=== PATIENT | male | born 1970 | race Two or more races ===

== ENCOUNTER 2020-06-20 08:42 | Outpatient (CLI) | payer OTHER | END 2020-06-20 08:59 | disposition home or self-care (01) | LOC: SONOGRAMA 08:42 → MAMO-SONO 10:15 | PROVIDERS: ATTEND Surgery | DX: R10.84 Generalized abdominal pain (principal); R19.4 Change in bowel habit; Z80.0 Family history of malignant neoplasm of digestive organs ==

== ENCOUNTER 2020-06-27 07:02 | Day surgery (SDC) | payer OTHER | END 2020-06-27 11:00 | disposition home or self-care (01) | LOC: AMB-ENDOS 07:02 | PROVIDERS: ATTEND Surgery | DX: K62.89 Other specified diseases of anus and rectum (principal); Z20.822 Contact with and (suspected) exposure to COVID-19; K64.8 Other hemorrhoids ==